=== PATIENT | male | born 1945 | race Two or more races ===

== ENCOUNTER 2024-06-03 06:29 | Day surgery (SDC) | payer MEDICARE, OTHER, SELFPAY | END 2024-06-03 12:55 | disposition short-term general hospital (02) | LOC: GI 06:29 | PROVIDERS: ATTENDING PHYSICIAN Internal Medicine | DX: Z12.11 Encounter for screening for malignant neoplasm of colon (principal); I48.92 Unspecified atrial flutter; Z53.09 Procedure and treatment not carried out because of other contraindication ==

== ENCOUNTER 2024-06-03 15:45 | Inpatient (IN) | payer MEDICARE, OTHER, SELFPAY ==
[2024-06-03] VITALS (8 sets, daily range): BP systolic 103–164; BP diastolic 49–70; BMI 25.0
[2024-06-03 13:41] LABS: % Basophils 0.7 % (0-2); % Eosinophils 0.2 % (0-6); % Immature Granulocytes 0.4 % (0-0.5); % Lymphocytes 26.5 % (20.5-51.1); % Neutrophils 65.2 % (42.2-75.2); Absolute Lymphocytes 1.5 10^3/uL (1.2-3.4); Absolute Monocytes 0.4 10^3/uL (0.1-0.6); Absolute Neutrophils 3.6 10^3/uL (1.4-6.5); Hematocrit 48.7 % (39.0-52.0); Hemoglobin 15.9 g/dL (13.0-18.0); Mean Corp Hgb Conc. 32.6 g/dL (33.0-37.0); Mean Corpuscular Volume 94.9 fL (80.0-94.0); Mean Platelet Volume 11.4 fL (7.4-10.4); Nucleated Red Blood Cells % 0 % (-); Platelet Count 178 10^3/uL (130-400); Red Blood Cell Count 5.13 10^6/uL (4.70-6.10); Red Cell Dist. Width 12.8 % (11.5-14.5); White Blood Cell Count 5.6 10^3/uL (4.8-10.8)
--- NOTE | 2024-06-03 13:43 | ED.GENMED ---
History of Present Illness
General
Chief Complaint: Heart Rate Problem
Source: patient
Exam Limitations: none
Time Seen by Provider: 06/03/24 13:29
Nursing documentation reviewed up to this point in time: agreed with
History of Present Illness
History of Present Illness:
Patient without significant past medical history, presents to ED for for evaluation after his heart rate was noted to be in low 30s, with EKG revealing atrial flutter, prior to scheduled outpatient elective colonoscopy. Patient otherwise has no
complaints. Denies chest pain or palpitations. Denies dizziness or shortness of breath. Denies nausea or vomiting. Denies diaphoresis. Denies previous history of similar symptoms. However, patient does state that [facility] for [facility], during which time he was told that there is abnormal conduction, which prompted outpatient Holter monitoring. Patient does not however, does not see solid surface fabricator on routine basis. Patient takes
aspirin 81 mg daily.
Review of Systems
Review of Systems
Allergies reviewed?: Yes
All Other Systems: ROS reviewed and negative except as documented in HPI and ROS
Constitutional: Reports no symptoms
EENT: Reports no symptoms
Respiratory: Reports no symptoms
Cardiac: Reports no symptoms
ABD/GI: Reports no symptoms
Musculoskeletal: Reports no symptoms
Skin: Reports no symptoms
Neurological: Reports no symptoms
Phy Exam
Physical Exam
Physical Exam:
Physical Exam
General: no apparent distress, not acutely ill. afebrile. bradycardic.
Head: nc/at. eomi
Neck: supple. normal range of motion. no jvd.
Heart: bradycardic, no murmur.
Lungs: no acute respiratory distress. clear bilaterally
Abdomen: normal bowel sounds. not tender.
Neuro: alert and oriented x 3. no focal neurological deficits
Skin: no rash
Psychiatric: well kept. interactive and cooperative
Extremities: no edema. no calf tenderness.
Course
Orders/Labs/Results
Orders:
Orders
06/03/24 Breakfast
Regular
At Your Request: Full Participation
06/03/24 13:00
EKG [Electrocardiogram (*1)] Urgent
Reason for Study: Atrial Flutter
EKG- Treatment ONCE
06/03/24 13:31
Complete Blood Count/With Diff Urgent
Comprehensive Metabolic Panel Urgent
Magnesium Urgent
TSH Reflex To Free T4 Routine
Comment: ADD ON
06/03/24 13:37
Add On- LAB Urgent
Tests Added?: magnesium
0.9% Sodium Chloride 500 ml [Nss] 500 ml IV BOLUS
06/03/24 14:08
Atropine Sulfate [Atropine 0.1 mg/ml Syringe] 1 mg .ROUTE .STK-MED ONE
06/03/24 15:02
Admit/Transfer Patient As Directed
Co-Sign Provider:
Level of Care: Inpatient admission
Assign to:: Telemetry
Physician / Group: Marybeth
Diagnosis: Atrial Flutter / Bradycardia
Reason for Telemetry: Arrhythmia
Date to Stop Telemetry: 06/06/24
Time to Stop Telemetry: 11:00
Reason for Hospitalization: Cardioversion
Expected length of stay greater than two midnights?: Yes
ELOS- Estimated Length of Stay in days: 3
I certify the patient meets the requirements for IP care: Yes
PRN Pain Medication Management As Directed
May give lesser potent ordered pain med per pt: Yes
preference::
Protocol:: Medication orders for pain may be administered in a
manner that supports deferring to patient preference
when the pt is:
- Requesting an ordered lesser potent pain medication.
Least to most potent pain medications are defined
as: acetaminophen < NSAID < tramadol < opioids
(morphine, oxycodone, hydromorphone).
- Requesting a lesser dose of the same medication IF
ORDERED.
- Requesting a less intrusive route of administration
if both routes are prescribed by the provider (PO <
IV).
06/03/24 15:03
Code Status As Directed
Resuscitation Status: Full Code
06/03/24 15:06
Add On- LAB Routine
Tests Added?: TSH w/Reflex
06/03/24 17:48
Acetaminophen [Tylenol] 650 mg PO Q4HPRN PRN
06/03/24 17:48
CARDIOLOGY CONSULT Routine
Consulting Provider: Yoel Antunez
Was physician already notified: Yes
Activity As Directed
Activity Level: Out of Bed- Chair
Pneumatic Compression Sleeves As Directed
Type: Knee high
Vital Signs As Directed
Frequency: Per unit guidelines
DX Deep Vein Thrombosis Video Routine
06/04/24 Breakfast
NPO
Allow oral meds: Yes
Allow clear liquids: 4hrs prior to procedure
NPO with Ice Chips: Yes
Comment: may have unrestricted clear liquid up to 4 hrs prior to scheduled procedure
Basic Metabolic Panel IN AM
Complete Blood Count/No Diff IN AM
Magnesium IN AM
06/06/24 11:00
DC Protocol for Telemetry ONCE
Abnormal Lab Results
06/03/24
13:31
MCV 94.9 H fL
(80.0-94.0)
MCHC 32.6 L g/dL
(33.0-37.0)
MPV 11.4 H fL
(7.4-10.4)
BUN 23 H mg/dl
(9-20)
Total Bilirubin 1.6 H mg/dl
(0.2-1.3)
06/03/24 13:31
06/03/24 13:31
Vital Signs
Initial and Last Documented VS:
Initial Vital Signs
Temp Pulse Resp BP Pulse Ox
98.1 F 41 16 150/70 100
06/03/24 13:01 06/03/24 13:01 06/03/24 13:01 06/03/24 13:01 06/03/24 13:01
Last Documented Vital Signs
Temp Pulse Resp BP Pulse Ox
98.7 F 104 16 117/67 97
06/03/24 19:44 06/03/24 19:43 06/03/24 19:44 06/03/24 19:43 06/03/24 19:44
MDM/Problems Addressed
MDM/Problems Addressed:
History, exam, and EKG, consistent with slow atrial flutter. Heart rate consistently remains in low 30s, although without symptoms.
Discussed with on-call cardiology, Dr. Antunez. Recommends admission to hospitalist service for further evaluation or treatment, including inpatient cardioversion.
*Critical Care Note
Total Time (30-74mins, 75-104mins- exclusive of procedures): Not Applicable
ED Attending Note
-
Portions of this chart may have been created with voice recognition software.� Occasional wrong word or��sound alike� substitutions may have occurred due to the inherent limitations of voice recognition software.
Discharge Plan
Departure
Patient Disposition: Admit
Date of Disposition: 06/03/24
Time of Disposition: 14:48
Admit to: Telemetry
Presentation/result/management discussed w/ accepting MD/DO: Hospitalist
Discharge Problem:
Atrial flutter, Bradycardia
Interventions
Interventions:
*Risk Screen - Suicide Last Done: 06/03/24 17:32
*General Assessment Last Done: 06/03/24 13:17
*Neglect/Abuse Screening Last Done: 06/03/24 13:05
*ED- Fall Risk Assessment Last Done: 06/03/24 13:17
*ED COVID-19 Vaccine History Last Done: 06/03/24 17:32
*Nursing Disposition Last Done: 06/03/24 17:41
ED- Cardiac Assessment Last Done: 06/03/24 13:17
ED- Pulmonary Assessment Last Done: 06/03/24 13:17
Discharge Date and Time
Discharge Date/Time: 06/03/24 17:42
[2024-06-03] MEDS: NSS 500 IV (13:51)
[2024-06-03 14:00] LABS: ALT (SGPT) 24 U/L (0-50); AST (SGOT) 30 U/L (17-59); Albumin 4.1 g/dl (3.5-5.0); Alkaline Phosphatase 79 U/L (38-126); Blood Urea Nitrogen 23 mg/dl (9-20); Calcium 9.3 mg/dl (8.4-10.2); Carbon Dioxide 22 mmol/L (22-30); Chloride 102 mmol/L (98-107); Estimated Creatinine Clearance 56 ml/min; Glucose 75 mg/dl (70-99); Potassium 4.5 mmol/L (3.5-5.1); Sodium 136 mmol/L (135-145); Total Bilirubin 1.6 mg/dl (0.2-1.3); eGFR > 60.00
--- NOTE | 2024-06-03 14:53 | HPS.HSE ---
Family Physician
-
Family Physician: Aric Pastor
Chief Complaint
-
Bradycardia
History of Present Illness
Patient is a 79 y/o male who presents with bradycardia and atrial flutter. Patient reports he prepped for a colonoscopy yesterday. When he when to the outpatient endoscopy center today he was found to have a have atrial flutter with slow
ventricular response and was sent to the emergency department for evaluation. Patient reports feeling a little weak which he attributes to have no solid food since Monday (2 days ago). He denies chest pain, palpitation,
dizziness/lightheadedness. Patient reports he was admitted here at [facility] a few years ago with bradycardia. It appears he did Holter monitor which showed a high grade during sleep. Per outpatient notes patient was tolerating exercise
thus decision was made to not pursue pacemaker and continue to monitor.
Medical History
Past Medical History
Past Medical History: Reports Other
Additional Past Medical History:
Hyperlipidemia
Past Surgical History: Reports Other
Additional Past Surgical History:
Tonsillectomy
Social History
Tobacco: Non-smoker
Alcohol: Occasional (A few times a week)
Family History
Family History: Not pertinent
Allergies / Home Medications
Allergies reflects when Allergies were last updated in [facility].
Home Medications with original date entered in [facility]
Allergy/Medication List:
Allergies
Allergy/AdvReac Type Severity Reaction Status Date / Time
No Known Allergies Allergy Unverified 09/27/20 17:31
Home Medications
aspirin 81 mg chewable tablet 81 mg PO DAILY 09/28/20
cyanocobalamin (vitamin B-12) 1,000 mcg tablet 1,000 mcg PO DAILY #30 tabs 09/28/20
magnesium oxide 500 mg PO HS 06/03/24
Review of Systems
-
A 12 point ROS was completed and negative except as noted: Yes
Constitutional: Denies Fever or Chills
Respiratory: Denies Cough or Trouble Breathing
Cardiac: Denies Chest Pain or Palpitations
Physical Exam
Vital Signs
Vital Signs
Temp Pulse Resp BP Pulse Ox
98.1 F 35 16 130/58 100
06/03/24 13:01 06/03/24 14:45 06/03/24 14:45 06/03/24 14:00 06/03/24 13:01
Physical Exam
General: Comfortable and Conversant
HEENT: Anicteric and Moist mucous membranes
Respiratory: Clear and Non Labored Respirations
Cardiac: S1/S2, Regular Rhythm and Bradycardia
GI: Soft and Non Tender
Rectal: Deferred by Provider
Musculoskeletal: No Clubbing, No Cyanosis and No Edema
Skin: Warm and Dry
Neuro: Awake, Alert, Oriented and Nonfocal/grossly intact
Psych: Calm
Laboratory Results
-
06/03/24 13:31
06/03/24 13:31
Laboratory Results
Total Bilirubin 1.6 mg/dl (0.2-1.3) H 06/03/24 13:31
AST 30 U/L (17-59) 06/03/24 13:31
ALT 24 U/L (0-50) 06/03/24 13:31
Alkaline Phosphatase 79 U/L (38-126) 06/03/24 13:31
Data Reviewed
-
Medical Tests (Nuc Med, Echo, EKG etc): Report Reviewed by me
Lab Data: Labs Reviewed by me
Impression/Plan
-
Atrial Flutter with Slow Ventricular Response
-Admit to Telemetry
-Consult Cardiology
-Check TSH
-NPO after midnight for cardioversion tomorrow
-Defer decision on anticoagulation to Cardiology
DVT proph: SCDs
Cod Status: Full Code
--- NOTE | 2024-06-03 14:53 | CON.CAR ---
Addendum entered and electronically signed by Yoel Antunez MD 06/03/24 18:31:
79 yo male with PMH of 1st degree AVB, bifascicular block sent to ED from colonoscopy due to HR 30s. No sxs. Exam with bradycardia, irregular rhythm, no murmurs, no edema. Tele: Aflutter HR 30s-40s. EKG: atrial flutter HR 41.
Typical atrial flutter. Slow ventricular response. Discussed with EP. Start eliquis 5mg bid. Plan for BOBBY/DCCV in AM. To be done in EP lab in case needs urgent pacing. Patient aware that he is at high risk for needing PPM.
Original Note:
Consultation
Consultation Request
Date/Time Consultation Requested: 06/03/24 1437
Date/Time Consultation Performed: 06/03/24 1450
Requesting Provider: Dr. Huerta
Performing Provider: Kristy HAMMER for Dr. Antunez
Reason for Consultation: aflutter, bradycardia
Medical History
-
Chief Complaint: arrhythmia
History of Present Illness:
79 y/o male with bifascicular block, 1st degree AVB, and Wenckebach who is here as he was getting a routine colonoscopy and was noted to have atrial flutter on his EKG, which is a new diagnosis. The HR is quite slow. He has no symptoms. He denies
any CP, SOB, dizziness, or palpitations. He works out 3 times per week without difficulty. He looks well in the ER. is at bedside.
Past Medical History
Past Medical History: Other (as above)
Social History
Personal:
Family History
Family History: Other (dad had a pacemaker)
Allergies / Home Medications
Allergy/AdvReac Type Severity Reaction Status Date / Time
No Known Allergies Allergy Unverified 09/27/20 17:31
�Medication �Instructions �Recorded �Confirmed �Type
aspirin 81 mg chewable tablet 81 mg PO DAILY 09/28/20 Rx
atorvastatin 40 mg tablet 40 mg PO QPM #30 tabs 09/28/20 Rx
cyanocobalamin (vitamin B-12) 1,000 mcg PO DAILY #30 tabs 09/28/20 Rx
1,000 mcg tablet
Review of Systems
-
History Source: Patient
All other systems: Negative unless noted (no symptoms)
Physical Exam
Vital Signs
Temp Pulse Resp BP Pulse Ox
98.1 F 35 16 130/58 100
06/03/24 13:01 06/03/24 14:45 06/03/24 14:45 06/03/24 14:00 06/03/24 13:01
Lab Results
06/03/24 13:31
06/03/24 13:31
Physical Exam
General: Well Developed, Well Nourished and No Apparent Distress
HEENT: Normocephalic and Anicteric
Respiratory: Clear and Non Labored Respirations
Cardiac: Irregular Rhythm (and bradycardia)
Musculoskeletal: No Edema
Skin: Warm and Dry
Neuro: AO x 3
Psych: Calm
Impression / Plan
-
Atrial flutter, type unknown:
-new diagnosis, but unclear onset
-rates are bradycardic- 30's-40's (see below) in atrial flutter. He is not symptomatic. His [id number] score is 2 for age. Consider BOBBY/CV and start AC, but need to discuss with Dr. Antunez with his significant conduction disease. Discussed with
patient and .
-TSH pending
Cardiac conduction disease: severe
-patient with known conduction disease with hx bifascicular block and significant 1st degree AVB ([place] 560 ms to my review 2020)
-previous hx Mobitz 1, no symptoms
-follow telemetry, discuss with object oriented developer as above
-not on any rate-effecting agents- avoid any of these medications
-may need PPM, but asymptomatic. To discuss with EP as well.
Data Reviewed
-
EKG: Tracing Personally Visualized and interpreted (Aflutter )
Medical Tests (Nuc Med, Echo etc): Report Reviewed by me (Echo 09/28/20: Normal biventricular size and systolic function without regional wall motion abnormality. Trileaflet, sclerotic aortic valve without any stenosis. No prior study available
for comparison. ) and Other (holter 2020: Sinus with AV Wenckebach. Average rate 53 bpm. Longest pause 2.4 seconds. 3 runs of nonsustained ventricular tachycardia. Rare APCs and PVCs. No symptoms reported.)
Labs: Labs Reviewed by me
--- NOTE | 2024-06-03 15:21 | W.PN.UPDATE ---
Update Note
Progress Note Update
This is an addendum to H&P written by SHY Hinton
I saw and examined the patient.
The YOUTH MINISTER's note was reviewed and I agree with the note.
Comment:
Mr. Javid Dawson is a 79 yo man without significant past medical history sent to ER from GI clinic for finding of bradycardia low 30's. EKG with atrial fibrillation and slow ventricular rate.
Triage VS: T 98.1, P 41, RR 16, BP 150/70, SpO2 100%
LABS: WBC 5.6, HG 15.9, PLT 178, Na 136, K+ 4.5, Cr 1.2, Glucose 75
EKG: Aflutter @ 41
Atrial Flutter with slow ventricular response
new diagnosis Aflutter
-admit to telemetry
-patient is not on AV brad blocking agents
-follow up plan per cardiology
FULL CODE
[2024-06-03 16:37] LABS: TSH Reflex To Free T4 3.11 uIU/ml (0.47-4.68)
--- NOTE | 2024-06-03 18:03 | PTCARENOTE ---
Pt received from the ED in aflutter, rate in the 30's to 50's. Denies any dizziness, lightheadedness, chest pain or sob. Room air sat 99%.
[2024-06-03] MEDS: ELIQUIS 5 MG PO (19:46)
[2024-06-04] VITALS (9 sets, daily range): BP systolic 119–168; BP diastolic 55–88; BMI 25.1
[2024-06-04 04:06] LABS: Hematocrit 44.5 % (39.0-52.0); Hemoglobin 14.8 g/dL (13.0-18.0); Mean Corp Hgb Conc. 33.3 g/dL (33.0-37.0); Mean Corpuscular Hgb 31.4 pg (27.0-31.0); Mean Corpuscular Volume 94.5 fL (80.0-94.0); Platelet Count 166 10^3/uL (130-400); Red Blood Cell Count 4.71 10^6/uL (4.70-6.10); Red Cell Dist. Width 12.7 % (11.5-14.5); White Blood Cell Count 5.9 10^3/uL (4.8-10.8)
[2024-06-04 04:33] LABS: Blood Urea Nitrogen 27 mg/dl (9-20); Calcium 8.8 mg/dl (8.4-10.2); Carbon Dioxide 26 mmol/L (22-30); Chloride 101 mmol/L (98-107); Estimated Creatinine Clearance 56 ml/min; Glucose 102 mg/dl (70-99); Magnesium 2.1 mg/dl (1.6-2.3); Potassium 4.2 mmol/L (3.5-5.1); Sodium 136 mmol/L (135-145); eGFR > 60.00
--- NOTE | 2024-06-04 05:44 | PTCARENOTE ---
Pt A Flatter on monitor with HR 30-40 BPM. Denies dizziness or lightheadedness. Independent in the room. Call rodas in reach
--- NOTE | 2024-06-04 07:43 | W.PN.HOSP.TC ---
Today's Communication/Plan
-
NPO for BOBBY Cardioversion
Assessment / Plan
Assessment / Plan
Mr. Javid Dawson is a 79 yo man without significant past medical history sent to ER from GI clinic for finding of bradycardia low 30's. EKG with atrial fibrillation and slow ventricular rate.
Atrial Flutter with slow ventricular response
new diagnosis Aflutter
-admit to telemetry
-patient is not on AV brad blocking agents
-new start Eliquis
-NPO for BOBBY/Cardioversion; possible need for PPM - patient aware
-appreciate Cardiology
DVT PPx Eliquis
FULL CODE
Anticipated Discharge: 24 - 48 hours
Subjective/Interval History
-
Date of Service: June 04, 2024
no new complaints
Objective Data
-
Labs:
Laboratory Results
06/04/24
03:15
WBC 5.9
Hgb 14.8
Hct 44.5
Plt Count 166
Sodium 136
Potassium 4.2
Chloride 101
Carbon Dioxide 26
BUN 27 H
Creatinine 1.2
Glucose 102 H
Calcium 8.8
Vital Signs:
Vital Signs
Temp Pulse Resp BP Pulse Ox
97.8 F 32 16 130/55 96
06/04/24 03:07 06/04/24 06:15 06/04/24 03:07 06/04/24 03:08 06/04/24 03:07
I&O
06/03/24 06/04/24 06/05/24
06:59 06:59 06:59
Intake Total 350 / 350
Balance 350 / 350
Review of Systems
-
History Source: Patient
All other systems: Reviewed and negative
Physical Exam
-
General: No Apparent Distress
HEENT: PERRLA
Respiratory: Clear to Auscultation; Negative Wheezes
Cardiac: Bradycardic
GI: Soft and Nontender
Musculoskeletal: No Edema
Skin: Warm and Dry; Negative Rash
Neuro: AO x 3
Psych: Calm
Data Reviewed
-
Diagnostic Radiology: Report Reviewed by me
Labs: Labs Reviewed by me
[2024-06-04] MEDS: FLUSH (NSS) 1 FLUSH IV (08:41)
[2024-06-04] MEDS: ELIQUIS 5 MG PO (08:41)
--- NOTE | 2024-06-04 09:29 | PTCARENOTE ---
Received patient this morning resting in bed. Remains in A flutter with rates in the 30's, NPO x meds for BOBBY/CV.
--- NOTE | 2024-06-04 09:39 | CM ---
Addendum entered by Earline Cronin 06/04/24 09:49:
Gave him the Patient Assistance application for Eliquis.
Original Note:
Reviewed chart. Met with Mr. Dawson to review discharge plans. He states prior to admission he resides with his spouse in a three story home with two steps to enter. He states he has a full flight of steps to get to bedroom/full bathroom. He states
he has a powder room on the first floor. He states prior to admission he was independent with ambulation and adls. He states he does not have any DME in the home. He states he does not have a prescription plan. Telephone call to [facility] to get
ty sevilla for Eliquis. The ty sevilla is $578.00 a month with a discount card. Placed the one month free coupon in his red discharge folder. Medical work-up in progress. The discharge plan is to return home with his spouse when medically stable.
--- NOTE | 2024-06-04 16:55 | ITS.CL.PACE ---
Tax Examining Technician - Pacemaker Implant
Pacemaker Implant
Procedure Report:
Dual Chamber Pacemaker Placement:
Mr. Dawson is a 79-year-old gentleman with hx of conduction disease and AV block presented wit typical atrial flutter and complete heart block with junctional escape rhythm and is recommended a pacemaker placement.
Indications: Complete heart block
Date of the Procedure: 06/04/2024
Pre-Operative Diagnosis: Complete heart block
Post-Operative Diagnosis: Complete heart block
Procedure Performed: DUAL CHAMBER PACEMAKER IMPLANTATION
Performing Physician:
Aguila Heck MD
Assistants:
EP staff
Anesthesia:
See anesthesia report
Pre-operative antibiotics:
Ancef
Detailed Description of the Procedure:
The patient was identified using hospital identification and informed consent obtained for the procedure. The risks were explained including, but not limited to: Bleeding, infection, arrhythmia, stroke, vascular/cardiac/lung puncture, surgery,
pacemaker dependency/device malfunction. All questions were answered.
The patient was brought to the electrophysiology laboratory in stable condition in fasting state. Continuous electrocardiographic and hemodynamic monitoring was initiated.
The initial rhythm was atrial flutter with junctional escape.
A surgical pause and time out was performed immediately prior to the procedure with review of her medical history, recent labs, allergies and medications with site of procedure identified and consent noted in the chart. Antibiotics pre operatively
given. All team members concurred.
The procedure site was meticulously prepared with surgical scrub and allowed to dry with no pooling. Sterile draping was applied to cover the procedure site. The image intensifier was draped with sterile bag and positioned over the patient.
The left infraclavicular region was prepped and draped in the usual sterile fashion. Local anesthesia was administered subcutaneously using 1% lidocaine / Bupivacaine. The left cephalic vein cutdown was performed with an incision at the
delto-pectoral groove, and vascular sheaths were introduced for lead access. These were advanced into the right ventricle and the right atrium.
The right ventricular lead was secured in position with an active fixation technique at the apical septal location.
The RA lead was attached in the right atrial appendage with passive dianne fixation.
There was excellent sensing, pacing, and impedance from the leads, with no diaphragmatic stimulation at 10 V output.�Bovie cautery, antibiotics, and fluoroscopy were used.
The sheaths were withdrawn, and the thresholds remained acceptable. The leads were secured in position at the venous entry site with 2-0 Ethibond. A pocket was fashioned contiguous to the incision. The electrode terminals were connected to the pulse
generator, which was placed into the pocket. The wound was irrigated thoroughly with antibiotic solution.
The device was anchored to the underlying fascia using 2-0 Ethibond suture.
The wound was closed in 3 layers using 2-0 V loc then two layers of 4-0 V loc sutures to the dermis. Steri-strips were applied externally and covered with Aquacel bandage.
Procedure End:
The procedure was tolerated well.
Estimated Blood loss:
5 cc
Specimens Removed:
No cultures and no specimens were obtained. No intraoperative pathology was identified.
Fluoro time:
3.1 min / 7.7mGy
Urine output:
None
Packs / Drains/ Tubes:
None
Instrument / Sponge Count Correct:
Yes
Complications of the Procedure:
None
Condition of Patient at Time of Transfer:
Hemodynamically stable with no neurological or vascular compromise.
Device information:�
Generator: Flapshare; Model: [id number]; Serial # [id number]�
Atrial Lead:
[employer]; Model: 4574-53; Serial # [id number]�
Measured data in the right atrium was sensing of 6.0 mV of flutter waves, impedance of 740 ohms and threshold of <1.0 V at 0.4ms.
RV Lead:
Medtronic; Model: 5076-58; Serial # [id number]
Measured data in the RV lead was sensing of 8 mV, impedance of 680 ohms and threshold of 0.5 V at 0.4ms�
Pedro parameter settings were AAIR < = > DDDR 60-130 bpm. �
����������� Mode Switch: On � Mode switched to VVIR
����������� Paced AV interval: 180ms
����������� Sensed AV interval: 150 ms.
����������� Rate Adaptive A-V Interval: Off
Output parameters:
����������������������� Amplitude (V)������������� Pulse Width (ms)������� Sensitivity (mV)
����������� RA: ���� 3.5 ����������������� ����������� 0.4������������������ ����������� 0.3
����������� RV:����� 3.5������������������ ����������� 0.4������������������ ����������� 0.9
Summary:
Successful implantation of MRI compatible dual chamber Medtronic pacemaker
Results/Recommendations:
-Please follow up CXR�
1. Please provide patient with adequate pain control�
Instructions to be given to patient:�
- Please follow up with [facility] at [address] [place] [address] ([phone]) to get your wound checked within 14 days of your discharge.
- Do not wet incision site until after it is evaluated at cardiology clinic. No soaking or bath until then. Showers or Sponge baths are OK.�Dab dry the area after a shower.
- Do not lift left elbow above shoulder, particularly with sudden jerking movements, for 1 month�
- Do not lift anything weighing more than 10 pounds with the left arm for 1 month�
- If you notice any fevers, shortness of breath, lightheadedness, chest pain, or worsening swelling in the wound site, please contact the arrhythmia clinic, contact your lamps tester and inspector, or present to the hospital for evaluation.�
Aguila Heck MD
Electrophysiology
--- NOTE | 2024-06-04 17:29 | PTCARENOTE ---
Received patient post op after PPM placement left upper chest. Patient is AAO, offers no complaints, Vpaced on the monitor with underlying A flutter, rate of 60. Pressure dressing left chest is dry and intact, immobilizer in place. Post op EKG done,
monitoring VS. Call rodas in reach, patient waiting for his dinner.
[2024-06-04] MEDS: ANCEF 5 IV (20:57)
--- NOTE | 2024-06-04 21:59 | PTCARENOTE ---
Pt V paced with underline A flatter on monitor. Denies pain. OOB with x1 assist. Left chest dsg intact.
[2024-06-05 03:22] VITALS: BP 135/75
[2024-06-05 04:40] VITALS: BMI 25.1
--- NOTE | 2024-06-05 04:43 | DOWNTIME ---
There was a [employer] Client [employer] Downtime on 06/05/2024 from 0100 to 06/06/2023 at 0420 . Downtime documentation of patient's care, including medication administrations, has been reconciled in the electronic record per guidelines. Refer to the
patient's paper chart under the miscellaneous tab to see printed paper medication records and downtime forms.
--- NOTE | 2024-06-05 04:51 | DOWNTIME ---
There was a [employer] Client Stroke Program Coordinator Downtime on 06/05/2024 from 0100 to 06/06/2023 at 0420 . Downtime documentation of patient's care, including medication administrations, has been reconciled in the electronic record per guidelines. Refer to the
patient's paper chart under the miscellaneous tab to see printed paper medication records and downtime forms.
[2024-06-05] MEDS: ANCEF 5 IV (05:39)
[2024-06-05 05:51] LABS: Hematocrit 49.4 % (39.0-52.0); Hemoglobin 16.5 g/dL (13.0-18.0); Mean Corp Hgb Conc. 33.4 g/dL (33.0-37.0); Mean Corpuscular Hgb 31.1 pg (27.0-31.0); Mean Corpuscular Volume 93.2 fL (80.0-94.0); Mean Platelet Volume 11.6 fL (7.4-10.4); Platelet Count 170 10^3/uL (130-400); Red Cell Dist. Width 12.7 % (11.5-14.5); White Blood Cell Count 9.1 10^3/uL (4.8-10.8)
[2024-06-05 06:48] LABS: Blood Urea Nitrogen 19 mg/dl (9-20); Calcium 9.3 mg/dl (8.4-10.2); Carbon Dioxide 22 mmol/L (22-30); Chloride 105 mmol/L (98-107); Estimated Creatinine Clearance 67 ml/min; Glucose 121 mg/dl (70-99); Magnesium 1.9 mg/dl (1.6-2.3); Potassium 4.8 mmol/L (3.5-5.1); Sodium 136 mmol/L (135-145); eGFR > 60.00
[2024-06-05 06:50] VITALS: BP 138/91
--- NOTE | 2024-06-05 07:42 | PTCARENOTE ---
Patient resting in bed this morning, pressure dressing is dry and intact left upper chest with immobilizer in place. 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 Call rodas in reach.
--- NOTE | 2024-06-05 08:53 | W.PN.HOSP.TC ---
Today's Communication/Plan
-
possible DC after seen by Cardiology
Assessment / Plan
Assessment / Plan
Mr. Javid Dawson is a 79 yo man without significant past medical history sent to ER from GI clinic for finding of bradycardia low 30's. EKG with atrial fibrillation and slow ventricular rate.
Atrial Flutter with slow ventricular response
new diagnosis Aflutter
-admit to telemetry
-s/p PPM placement on 06/04; patient is in aflutter; V-paced this morning rate 60's
-F/U further cardiology recommendations
-continue Pradaxa
DVT PPx Pradaxa
FULL CODE
Anticipated Discharge: Within 24 hours
Subjective/Interval History
-
Date of Service: June 05, 2024
feeling well
hoping to leave later today
Objective Data
-
Labs:
Laboratory Results
06/05/24
05:33
WBC 9.1
Hgb 16.5
Hct 49.4
Plt Count 170
Sodium 136
Potassium 4.8
Chloride 105
Carbon Dioxide 22
BUN 19
Creatinine 1.0
Glucose 121 H
Calcium 9.3
Vital Signs:
Vital Signs
Temp Pulse Resp BP Pulse Ox
98 F 60 20 138/91 98
06/05/24 06:50 06/05/24 07:00 06/05/24 06:50 06/05/24 06:50 06/05/24 06:50
I&O
06/04/24 06/05/24 06/06/24
06:59 06:59 06:59
Intake Total 350 / 350 500 / 500
Balance 350 / 350 500 / 500
Review of Systems
-
History Source: Patient
All other systems: Reviewed and negative
Physical Exam
-
General: No Apparent Distress
HEENT: PERRLA
Respiratory: Clear to Auscultation; Negative Wheezes
Cardiac: Regular Rhythm
GI: Soft and Nontender
Musculoskeletal: No Edema
Skin: Warm and Dry; Negative Rash
Neuro: AO x 3
Psych: Calm
Data Reviewed
-
Diagnostic Radiology: Report Reviewed by me
Labs: Labs Reviewed by me
[2024-06-05] MEDS: PRADAXA 150 MG PO (09:00)
[2024-06-05] MEDS: FLUSH (NSS) 2 FLUSH IV (09:00)
--- NOTE | 2024-06-05 10:04 | W.PN.CD ---
Today's Communication / Plan
-
home on Dabigatran 150mg bid
f/u in office for device check and dressign removal
post ppm activity restrictions
Impression / Plan
-
CHB with Junctional escape: s/p DC Med[employer] ppm
-typical post ppm care
-leave dressing in place until seen in the office.
Atrial flutter, type unknown:
-new diagnosis, but unclear onset
-in flutter with appropriate pacing now
-His [id number] score is 2 for age.--->Dabigatran initiated
-will Consider BOBBY/CV after op follow up if rhythm is symptomatic
-TSH normal
Subjective:
feeling well without complaint
Physical Exam
Vital Signs/Labs
Vital Signs
Temp Pulse Resp BP Pulse Ox
98 F 60 20 138/91 98
06/05/24 06:50 06/05/24 07:00 06/05/24 06:50 06/05/24 06:50 06/05/24 06:50
06/04/24 06/05/24 06/06/24
06:59 06:59 06:59
Actual Weight 83.8 kg 83.8 kg
06/05/24 05:33
06/05/24 05:33
Magnesium 1.9 mg/dl (1.6-2.3) 06/05/24 05:33
Physical Exam
Constitutional: No acute distress
Cardiovascular: Rhythm & rate is regular, Pedal edema is absent, JVD pressure is normal, Systolic murmur absent and Diastolic murmur absent
Respiratory: Respiratory effort normal, Lungs clear to auscul., Wheeze Absent and Crackles Absent
Neuro/Psych: AO x 3
Other: Cardiac Device Site (Aquacell dressing clean dry and intact, no hematoma)
Data Reviewed
-
Date of Service: June 05, 2024
EKG: Other (tele aflutter with appropriate pacing)
X-Ray/CT/US/MRI/NUC/PET: Image Personally Visualized and interpreted (ra and rv lead in place no ptx)
--- NOTE | 2024-06-05 10:18 | CM ---
Pricing on Pradaxa with [facility] is $66 for a 30 day supply. I gave the coupon to the patient and reviewed it with him.
--- NOTE | 2024-06-05 10:25 | W.DS.TRANS ---
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
-
Discharge Instructions:
Discharge Diagnosis/Procedures Pacemaker implant; atrial flutter and heart
block
Diet Regular
Activity As tolerated
Driving Restrictions No driving for 1 week
Bathing Restrictions None
Instructions:
Stand-Alone Forms: DC Inst - Implanted Device
Changes to Home Medications: Yes
Discharge Medications:
DC Medications w/original date entered in House Party
cyanocobalamin (vitamin B-12) 1,000 mcg tablet 1,000 mcg PO DAILY #30 tabs 09/28/20
magnesium oxide 500 mg PO HS 06/03/24
dabigatran etexilate 150 mg capsule (Pradaxa) 150 mg PO BID #60 caps 06/05/24
Home Medication Changes
stop Aspirin
New start Pradaxa for stroke prevention in setting of atrial flutter
Pending Results: No
--- NOTE | 2024-06-05 10:26 | W.DS.TRANS ---
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
-
Discharge Instructions:
Discharge Diagnosis/Procedures Pacemaker implant; atrial flutter and heart
block
Diet Regular
Activity As tolerated
Driving Restrictions No driving for 1 week
Bathing Restrictions None
Instructions:
Stand-Alone Forms: DC Inst - Implanted Device
Changes to Home Medications: Yes
Discharge Medications:
DC Medications w/original date entered in [facility]
cyanocobalamin (vitamin B-12) 1,000 mcg tablet 1,000 mcg PO DAILY #30 tabs 09/28/20
magnesium oxide 500 mg PO HS 06/03/24
dabigatran etexilate 150 mg capsule (Pradaxa) 150 mg PO BID #60 caps 06/05/24
Home Medication Changes
stop aspirin
addition of Pradaxa
Pending Results: No
[2024-06-05 11:09] VITALS: BP 122/80
[2024-06-05] MEDS: FLUAD (65 yr+) 2024-2025 FORMULA 0.5 ML IM (11:10)
--- NOTE | 2024-06-05 11:42 | PTCARENOTE ---
Patient seen by cardiology and is ok for discharge. 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 Reviewed discharge instructions, follow up appointments, new medication and activity restrictions, with the
patient and his and they state their understanding. Patient discharged home with his .
--- NOTE | 2024-06-05 12:53 | W.DCSUMMARY ---
Discharge Summary
Discharge Data
Date of Admission: 06/03/24
Date of Discharge: 06/05/24
-
Pending Results: No
Hospital Course
Discharging Physician : Dr. Loyda Rueda
Disposition : Home
Primary care physician : Dr. Aric Pastor
Principal Discharge diagnosis : Atrial Flutter; complete heart block
Hospital Course :
Mr. Javid Dawson is a 79 yo man without significant past medical history sent to ER from GI clinic for finding of bradycardia low 30's. EKG with atrial flutter with complete heart block and junctional escape rhythm. BP 150/70. Labs unremarkable.
He was admitted to medicine with Cardiology consulting. He underwent PPM placement morning of 06/04/24. CHADS2-Vasc score = 2, Pradaxa initiated. He discharged with close outpatient Cardiology follow up. BOBBY/CV to be considered as outpatient.
Time spent on discharge was 32 minutes.
Important imaging findings :
Procedure findings :
Date of the Procedure: 06/04/2024
Pre-Operative Diagnosis: Complete heart block
Post-Operative Diagnosis: Complete heart block
Procedure Performed: DUAL CHAMBER PACEMAKER IMPLANTATION
Discharge Plan
-
Patient Disposition: Home (Routine Discharge)
Discharge Diagnosis/Procedures: Pacemaker implant; atrial flutter and heart block
Diet: Regular
Activity: As tolerated
Driving Restrictions: No driving for 1 week
Bathing Restrictions: None
Stand Alone Forms: DC Inst - Implanted Device
Referrals:
Aric Pastor MD [Family Provider] - in less than 1 week
Aguila Heck MD [Active] - 06/12/24 2:20 pm (Post device incision check appointment)
Additional Discharge Medication Instructions: stop Aspirin
New start Pradaxa for stroke prevention in setting of atrial flutter
Prescriptions:
New
dabigatran etexilate [Pradaxa] 150 mg Capsule
150 mg PO BID Qty: 60 0RF
Continued
cyanocobalamin (vitamin B-12) 1,000 MCG tablet
1,000 mcg PO DAILY Qty: 30 0RF
magnesium oxide 500 mg magnesium Tablet
500 mg PO HS
Discontinued
aspirin 81 MG tablet,chewable
81 mg PO DAILY 0RF
Discharge Orders:
Discharge Patient (As Directed); Ordered 06/05/24
Ordered By: Loyda Rueda
Care Plan Goals
Care Plan Goals:
Problem: Readiness for enhanced knowledge related to diagnosis and treatment plan
Goal: Understand your diagnosis and treatment plan needs, including medications if applicable.
Instructions: Know your diagnosis, underlying causes and treatment plan options, including medications if applicable. Consult with your health care team to learn about your diagnosis and treatment plan, including medications if applicable.
Discharge Date and Time
Print Language: IVORIAN
== END 2024-06-05 15:13 | disposition home or self-care (01) | DRG 244 ==
LOC: IVU 15:45
PROVIDERS: Emergency Medicine; Internal Medicine Cardiovascular Disease; Physician Assistant Medical; ADMITTING PHYSICIAN Student in an Organized Health Care Education/Training Program; CONSULT PHYSICIAN Internal Medicine; EMERGENCY PHYSICIAN Emergency Medicine; FAMILY PHYSICIAN Family Medicine
PROC: 02HK3JZ Insertion of Pacemaker Lead into Right Ventricle, Percutaneous Approach (ICD-10-PCS; 2024-06-04)
PROC: 02H63JZ Insertion of Pacemaker Lead into Right Atrium, Percutaneous Approach (ICD-10-PCS; 2024-06-04)
PROC: 0JH606Z Insertion of Pacemaker, Dual Chamber into Chest Subcutaneous Tissue and Fascia, Open Approach (ICD-10-PCS; 2024-06-04)
DX: I44.2 Atrioventricular block, complete (principal); I48.92 Unspecified atrial flutter; E78.5 Hyperlipidemia, unspecified; Z79.82 Long term (current) use of aspirin
CPT/HCPCS: 33208; 71045; 80048; 80053; 83735; 84443; 85025; 85027; 90662; 93005; 99285; C1785; C1892; C1898; G0008

== ENCOUNTER → 2024-07-02 13:03 | Outpatient (REF) | payer MEDICARE, OTHER, SELFPAY ==
[2024-07-02 14:08] LABS: % Basophils 1.1 % (0-2); % Eosinophils 1.1 % (0-6); % Immature Granulocytes 0.4 % (0-0.5); % Lymphocytes 29.6 % (20.5-51.1); % Monocytes 5.8 % (1.7-9.3); Absolute Basophils 0.1 10^3/uL (0-0.2); Absolute Eosinophils 0.1 10^3/uL (0-0.7); Absolute Lymphocytes 1.7 10^3/uL (1.2-3.4); Absolute Monocytes 0.3 10^3/uL (0.1-0.6); Absolute Neutrophils 3.5 10^3/uL (1.4-6.5); Hematocrit 48.3 % (39.0-52.0); Mean Corp Hgb Conc. 33.1 g/dL (33.0-37.0); Mean Corpuscular Hgb 31.5 pg (27.0-31.0); Mean Corpuscular Volume 95.1 fL (80.0-94.0); Mean Platelet Volume 10.8 fL (7.4-10.4); Nucleated Red Blood Cells % 0 % (-); Platelet Count 176 10^3/uL (130-400); Red Blood Cell Count 5.08 10^6/uL (4.70-6.10); Red Cell Dist. Width 12.8 % (11.5-14.5); White Blood Cell Count 5.7 10^3/uL (4.8-10.8)
[2024-07-02 15:17] LABS: ALT (SGPT) 39 U/L (0-50); AST (SGOT) 34 U/L (17-59); Albumin 4.5 g/dl (3.5-5.0); Alkaline Phosphatase 80 U/L (38-126); Blood Urea Nitrogen 25 mg/dl (9-20); Calcium 9.3 mg/dl (8.4-10.2); Carbon Dioxide 26 mmol/L (22-30); Chloride 105 mmol/L (98-107); Glucose 121 mg/dl (70-99); Potassium 4.7 mmol/L (3.5-5.1); Sodium 141 mmol/L (135-145); Total Bilirubin 0.8 mg/dl (0.2-1.3); Total Protein 7.2 g/dl (6.3-8.2); eGFR > 60.00
== END ==
LOC: SDSPAT 13:03
PROVIDERS: ATTENDING PHYSICIAN Internal Medicine Cardiovascular Disease; FAMILY PHYSICIAN Family Medicine
DX: I48.3 Typical atrial flutter (principal); I45.2 Bifascicular block; Z95.0 Presence of cardiac pacemaker; I44.2 Atrioventricular block, complete
CPT/HCPCS: 36415; 80053; 85025; 86850; 86900; 86901; 93005

== ENCOUNTER 2024-07-15 07:44 | Day surgery (SDC) | payer MEDICARE, OTHER, SELFPAY ==
[2024-07-02 13:25] VITALS: BMI 26.5
--- NOTE | 2024-07-02 14:19 | HPS.HSE ---
Family Physician
-
Family Physician: INTERVIEWE UNKNOWN - PT NOT
Chief Complaint
-
Typical atrial flutter.
History of Present Illness
The patient is a 79 year old male presenting today for typical atrial flutter. The patient is relatively asymptomatic despite this diagnosis. He was set to undergo a routine surveillance colonoscopy in May 2024 when he was noted to have
new onset atrial flutter with slow ventricular response. He was sent to the emergency department at [facility] for further assessment and treatment. He ultimately was admitted for further evaluation and cardiology was consulted. He was
initially started on Eliquis but switched to Pradaxa for oral anticoagulation due to his [id number] score of 2. Given his severe bradycardia secondary to complete heart block, he underwent a dual chamber pacemaker implant on 06/03/2024. It was
decided that he may proceed with a BOBBY-guided cardioversion vs. ablation 1 month after healing from his pacemaker implant. He was discharged and advised to follow-up with Cardiology closely. Given he is approaching 1 month post-procedure, he is
interested in proceeding with typical atrial flutter ablation for more definitive arrhythmia management. He denies any complaints today such as chest pain, shortness of breath, nausea, vomiting, diarrhea, lightheadedness, dizziness, cough, sore
throat, or fever.
Medical History
Past Medical History
Past Medical History: Reports Other
Additional Past Medical History:
1. Typical atrial flutter, oral anticoagulation with Pradaxa.
2. 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
3. Nonsustained ventricular tachycardia.
4. Left bundle branch block.
5. Hyperlipidemia.
6. Colon polyps.
7. Diverticulosis.
8. Hemorrhoids.
9. Erectile dysfunction.
10. Vitamin B12 deficiency.
Past Surgical History: Reports Other
Additional Past Surgical History:
1. Dual chamber pacemaker implant.
2. Tonsillectomy.
3. Colonoscopy x2.
Social History
Tobacco: Non-smoker
Alcohol: Occasional
Personal:
Living: Other (He lives in a 3 story home with his . )
Family History
Family History: Not pertinent
Allergies / Home Medications
Allergy/Medication List:
Home medications:
1. Cyanocobalamin 1000 mcg p.o. daily.
2. Pradaxa 150 mg p.o. twice a day.
3. Magnesium oxide 500 mg p.o. at bedtime.
Allergies: No known allergies.
Review of Systems
-
A 12 point ROS was completed and negative except as noted: Yes
Physical Exam
Vital Signs
Blood pressure 131/75. Heart rate 70. Respirations 18. Pulse ox 97% on room air.
Height 5 feet, 11 inches. Weight 86 kg. BMI 26.4.
Physical Exam
General: Well Developed, Well Nourished and No Apparent Distress
HEENT: NormoCephalic, Moist mucous membranes, Atraumatic and PERRLA
Respiratory: Clear
Cardiac: Irregular Rhythm and Other (Pacemaker site intact. )
GI: Soft, Non Tender and Non Distended
Musculoskeletal: No Edema and Normal Gait & Station
Skin: Warm and Dry
Neuro: AO x 3 and Nonfocal/grossly intact
Laboratory Results
-
DIAGNOSTIC STUDIES as of 07/02/2024: White blood cell count 5.7. Hemoglobin 16.0. Platelet count 176,000. Sodium 141. Potassium 4.7. BUN 25. Creatinine 1.1. Glucose 121. Calcium 9.3. AST 34. ALT 29. Albumin 4.5. Blood type AB positive.
EKG 07/02/2024: Atrial flutter. Left axis deviation. Left bundle branch block.
Echocardiogram 09/28/2020: Normal biventricular size and systolic function without regional wall motion abnormality. Trileaflet, sclerotic aortic valve without any stenosis. No prior study available for comparison.
Impression/Plan
-
IMPRESSION/PLAN:
1. Typical atrial flutter: The patient is in need of a typical atrial flutter ablation with Dr. Aguila Heck on 07/15/2024. The benefits and risks of the procedure have been explained to the patient. The patient understands these risks and wishes
to proceed. He is aware to hold his Pradaxa the morning of his procedure.
[2024-07-15] VITALS (15 sets, daily range): BP systolic 100–169; BP diastolic 46–94; BMI 25.8
--- NOTE | 2024-07-15 12:28 | ITS.CL.ABL ---
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
Ablation
Procedure Report:
Atrial Flutter ablation:
Mr. Dawson is a very pleasant 79 yr old gentleman with persistent atrial flutter presented for EP study and ablation.
Date of the Procedure:
07/15/2024
Indications:
Atrial flutter
Pre-Operative Diagnosis:
Typical Atrial Flutter
Post-Operative Diagnosis:
Supra-ventricular tachycardia with Typical Atrial Flutter
Procedure Performed:
EP study
Atrial flutter ablation with cavo-tricuspid isthmus line block formation
Performing Physician:
Aguila Heck MD
Assistants:
EP staff
Anesthesia:
See anesthesia records
Detailed Description of the Procedure:
Written informed consent was obtained from the patient after a full explanation of the risks and benefits of the procedure including the risks of sedation and anesthesia.
The patient was brought to the electrophysiology laboratory in stable condition in fasting state. Continuous electrocardiographic and hemodynamic monitoring was initiated.
The initial rhythm was atria flutter.
The procedure site was meticulously prepared with surgical scrub and allowed to dry with no pooling. Sterile draping was applied to cover the procedure site. The image intensifier was draped with sterile bag and positioned over the patient.
After infusion of local anesthetic, vascular access was obtained under ultrasound guidance and sheaths were placed over guide wire as detailed below.
Sheath and Catheter Placement:
The following catheters / sheaths were placed
Sheaths:
��������� 8Fr in right femoral vein � upgraded to Agilis sheath
��������� 7Fr in the right femoral vein
Catheters:
��������� [employer] Thermocool STSF bidirectional� - at locations of HRA, RV, CS and His.
��������� Decapolar catheter - at locations of CS
A 3000 units of heparin was given after the access was complete.
Tachycardia:
The tachycardia was studied in detail � the cycle length was 260 msec. The entrainment from the CTI isthmus and the prox CS was in the flutter circuit.
Electroanatomic mapping (EAM):
The right atrium was mapped in the tachycardia. The tachycardia was fast but hemodynamically stable and could be mapped. The obtained maps of the tachycardia and the electrograms were studied in detail. EAM showed counter clockwise typical atrial
flutter with cavo tricuspid isthmus dependence
Ablation # 1: Typical Atrial Flutter Ablation:
Radiofrequency ablation was performed using a 3.5mm, open irrigation, force-sensing bidirectional ablation catheter ([employer] STSF) in the cavotricuspid isthmus from the tricuspid annulus to the IVC ridge.
The flutter slowed and terminated into sinus rhythm once the CTI block was achieved.
Post ablation mapping was done:
Following observations were noted.
����������� -Bidirectional block was confirmed across the CTI line with differential pacing.
����������� -Double potentials were spaced greater than 95 msec apart.
����������� -The conduction time across the CTI line from proximal CS pacing was 158 msec.
����������� -EAM of the right atrium was obtained with coronary sinus pacing and showed a line of block at the CTI.
����������� -The time interval just lateral to the ablation lesions was 158 msec and the lateral wall was 112 msec
����������� - All these maneuvers confirmed the block at the CTI line.
- Post ablation HV interval was unchanged at 45 msec
The patient was observed in the EP lab for 15 minutes and the repeat study showed stable block at the CTI location and CTI conduction time was 158 msec.
Procedure End
Following the completion of the EP study, catheters were removed. The sheaths were removed and hemostasis achieved with figure of 8 suture and manual compression.
Estimated Blood loss:
<5 cc
Specimens Removed:
None.
Implants / Devices:
None
Urine output:
None
Packs / Drains/ Tubes:
None
Instrument / Sponge Count Correct:
Yes
Fluoro time:
0 - Flouroless
Complications of the Procedure:
None
Condition of Patient at Time of Transfer:
Hemodynamically stable with no neurological or vascular compromise.
Summary:
Successful SVT ablation with typical atrial flutter ablation with cavo-tricuspid isthmus line of block formation.
.
--- NOTE | 2024-07-15 16:54 | W.PN.UPDATE ---
Update Note
Progress Note Update
Pt seen post atrial flutter ablation. Right groin site soft with small bleed post procedure, managed with manual compression and bedrest. Now no ht/bleeding, soft. OOB ambulating, urinating without difficulty. 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
Resume pradaxa tonight at usual time. Followup at [facility] as scheduled. Home later today if groin site/tele remain stable.
== END 2024-07-15 17:21 | disposition home or self-care (01) ==
LOC: CATH 07:44
PROVIDERS: ATTENDING PHYSICIAN Internal Medicine Cardiovascular Disease; FAMILY PHYSICIAN Family Medicine
DX: I48.3 Typical atrial flutter (principal); I44.2 Atrioventricular block, complete; Z95.0 Presence of cardiac pacemaker; I44.7 Left bundle-branch block, unspecified; E78.5 Hyperlipidemia, unspecified; Z86.0100 Personal history of colon polyps, unspecified; K57.90 Diverticulosis of intestine, part unspecified, without perforation or abscess without bleeding; Z87.19 Personal history of other diseases of the digestive system; N52.9 Male erectile dysfunction, unspecified; E53.8 Deficiency of other specified B group vitamins
CPT/HCPCS: C1894; C1730; C1732; C1766; 86900; 86901; 93005; 93653

== ENCOUNTER → 2025-01-24 08:11 | Outpatient (REF) | payer MEDICARE, SELFPAY | LOC: RCS 08:11 | PROVIDERS: ATTENDING PHYSICIAN Internal Medicine Cardiovascular Disease; FAMILY PHYSICIAN Family Medicine | DX: I44.2 Atrioventricular block, complete (principal) | CPT/HCPCS: 93306 ==